=== PATIENT | male | born 1995 | race Caucasian/White ===

== ENCOUNTER 2020-11-20 11:40 | Emergency (ER) | payer OTHER ==
[~2020-11-20] VITALS: Ht 170.2 cm; Wt 80.4 kg
[2020-11-20] MEDS ORDERED: PIPERACILLIN/TAZOBACTAM 3.375 GM in IV NORMAL SALINE 50ML 50 ML IV ONE (12:00)
[2020-11-20] MEDS ORDERED: KETOROLAC 15 MG/ML VIAL. IVP ONE (12:00)
--- NOTE | 2020-11-20 12:08 | PHYS DOC ---
General Adult EDM: Chief Complaint: ANIMAL BITE HPI: HPI: Patient is a 25-year-old male sent into emergency department from urgent care for admission for IV antibiotics. Patient was bitten the left hand by his cat 1.5 days ago. This was playing with a cat grabbed onto his hand. Has scratches and bite araiza around his knuckles. Throat is a little bit of swelling of his hand yesterday but worse today when he woke up. Patient denies any systemic complaints. Received a tetanus booster urgent care prior to arrival. Patient states his cat's vaccinations are up-to-date. Review of Systems: Review of Systems: All other systems within normal limits except for as noted in the HPI Current Medications: Current Meds: Current Medications Medications (Trade) Dose Ordered Sig/[place] Start Time Stop Time Status Last Admin Dose Admin Ketorolac Tromethamine (Toradol 15mg Vial) 15 mg 1X ONCE 11/20/20 12:00 11/20/20 12:01 UNV Piperacillin Sod/ Tazobactam Sod 3.375 gm/Sodium Chloride 50 ml @ 100 mls/hr 1X ONCE 11/20/20 12:00 11/20/20 12:29 UNV Physical Exam: PE: Constitutional: Well developed, well nourished, no acute distress, non-toxic appearance. [] HENT: Normocephalic, atraumatic, bilateral external ears normal, nose normal. [] Eyes: PERRLA, conjunctiva normal, no discharge. [] Neck: No rigidity, supple, no stridor. [] Cardiovascular: Regular rate and rhythm, brisk cap refill [] Lungs & Thorax: Non labored symmetric respirations, no tachypnea or respiratory distress [] Abdomen: Soft, nondistended. Skin: Warm, dry, Multiple scab scratches on dorsum of left hand. Diffuse erythema dorsum of left hand, small amount of central erythema on palm., Streaking lymphadenitis on left forearm [] Back: Unremarkable Extremities: No deformities, range of motion grossly intact, no lower extremity edema. Diffuse swelling of dorsum of left hand and proximal second finger. Decreased range of motion and tenderness of third and fourth knuckles. [] Neurologic: Alert and oriented X 3, no focal deficits noted. [] Psychologic: Affect normal, judgement normal, mood normal. [] EKG: EKG: [] Radiology/Procedures: Radiology/Procedures: Exam performed: Left hand 3 views. Indication: Left hand pain. Date of Service: 11/20/2020 Comparison: None available Discussion: PA, oblique lateral radiographs of the hand reveal the osseous structures to be intact and well aligned. The joint spaces are well-preserved. The articular margins are smooth. No soft tissue swelling or foreign bodies detected. Impression: Radiographically normal left hand. [] Heart Score: C/O Chest Pain: No Risk Factors: Risk Factors: DM, Current or recent (<one month) smoker, HTN, HLP, family history of CAD, obesity. Risk Scores: Score 0 - 3: 2.5% MACE over next 6 weeks - Discharge Home Score 4 - 6: 20.3% MACE over next 6 weeks - Admit for Clinical Observation Score 7 - 10: 72.7% MACE over next 6 weeks - Early Invasive Strategies Course & Med Decision Making: Course & Med Decision Making Pertinent Labs and Imaging studies reviewed. (See chart for details) Patient will need consult to hand surgery. Discussed with [facility] transfer team, Dr. Fabricio goodman and would like to have patient stop in the emergency department. Patient has a ride who will take him POV. [] Dragon Disclaimer: Dragon Disclaimer: This electronic medical record was generated, in whole or in part, using a voice recognition dictation system. Departure Departure: Impression: Primary Impression: Cellulitis of left hand Additional Impression: Cat bite Disposition: 02 SHORT TERM HOSPITAL Condition: STABLE Referrals: PCP,NO (PCP) Additional Instructions: Go directly to [facility] emergency department. Do not eat or drink anything until evaluated by the hand surgeon. ANDIE TAI MD November 20, 2020 12:08
[2020-11-20] MEDS ORDERED: ONDANSETRON PF 4 MG/2 ML VIAL. IVP ONE (12:30)
[2020-11-20] MEDS ORDERED: PIPERACILLIN/TAZOBACTAM 3.375 GM VIAL IV ONE (12:33)
[2020-11-20] MEDS ORDERED: IV NORMAL SALINE 50ML 50 ML ONE (12:33)
[2020-11-20 12:49] LABS: BASO # 0.1 x10^3/uL (0.0-0.2); BASO % 0 % (0-3); EOS # 0.1 x10^3/uL (0.0-0.7); EOS % 1 % (0-3); HEMATOCRIT 43.4 % (39.0-53.0); HEMOGLOBIN 15.1 g/dL (13.0-17.5); LYMPH # 0.8 x10^3/uL (1.0-4.8); LYMPH % 7 % (24-48); MEAN CORPUSCULAR HEMOGLOBIN 34 pg (25-35); MEAN CORPUSCULAR HGB CONC 35 g/dL (31-37); MEAN CORPUSCULAR VOLUME 97 fL (79-100); MONO # 1.1 x10^3/uL (0.0-1.1); MONO % 9 % (0-9); NEUT # 10.3 x10^3uL (1.8-7.7); NEUT % 83 % (31-73); PLATELET COUNT 307 x10^3/uL (140-400); RED BLOOD COUNT 4.47 x10^6/uL (4.30-5.70); RED CELL DISTRIBUTION WIDTH 12.6 % (11.5-14.5); WHITE BLOOD COUNT 12.4 x10^3/uL (4.0-11.0)
[2020-11-20 12:57] LABS: CALCIUM 9.1 mg/dL (8.5-10.1); CREATININE 1.3 mg/dL (0.7-1.3); GFR 66.7
[2020-11-20 13:04] LABS: ALBUMIN 4.3 g/dL (3.4-5.0); C REACTIVE PROTEIN 67.3 mg/L (0-3.3); TOTAL BILIRUBIN 3.5 mg/dL (0.2-1.0); TOTAL PROTEIN 8.4 g/dL (6.4-8.2)
--- NOTE | 2020-11-20 13:42 | RAD ---
Exam performed: Left hand 3 views. Indication: Left hand pain. Date of Service: 11/20/2020 Comparison: None available Discussion: PA, oblique lateral radiographs of the hand reveal the osseous structures to be intact and well align ed. The joint spaces are well-preserved. The articular margins are smooth. No soft tissue swelling or foreign bodies detected. Impression: Radiographically normal left hand. Electronically signed by: Lynda Morejon MD (11/20/2020 1:40 PM) [facility]
[2020-11-20 14:00] LABS: SEDIMENTATION RATE 17 (0-15)
[2020-11-20 14:07] VITALS: BP 116/67
== END 2020-11-20 14:35 | disposition short-term general hospital (02) ==
LOC: ER 11:40
DX: L03.114 Cellulitis of left upper limb (principal); W55.01XD Bitten by cat, subsequent encounter
CPT/HCPCS: 36415; 73130; 80053; 82550; 83874; 85025; 85651; 86140; 87040; 96365; 96375; 99285; J1885; J2405; J2543